=== PATIENT | female | born 1945 | race Caucasian/White ===

== ENCOUNTER 2022-12-28 10:35 | Observation (INO) ==
[2022-12-28 11:14] LABS: INR 1.05 (0.88-1.18)
[2022-12-28 11:19] LABS: ABS Eosinophils 0.1 10^3/uL (0.0-0.5); ABS Lymphocytes 1.1 10^3/uL (1.0-4.8); ABS Monocytes 0.4 10^3/uL (0.0-0.9); ABS Neutrophils 3.6 10^3/uL (1.5-7.6); Eosinophil % 2.1 %; Hematocrit 33.3 % (35-45); Hemoglobin 11.5 g/dL (11.5-14.3); Lymphocyte % 20.5 %; Mean Corpuscular Hemoglobin 32.5 pg (27-33); Mean Corpuscular Hgb Conc 34.4 g/dL (31-36); Mean Corpuscular Volume 94.5 fL (80-97); Mean Platelet Volume 9.1 fL (7.5-11.2); Platelet Count 277 10^3/uL (150-450); Red Blood Count 3.53 10^6/uL (3.63-4.92); Red Cell Distribution Width 14.6 % (12-17); White Blood Count 5.3 10^3/uL (3.8-11.8)
[2022-12-28 11:36] LABS: Albumin 4.2 g/dL (3.2-5.2); Albumin/Globulin Ratio 2.1 (1-3); Calcium 9.1 mg/dL (8.6-10.3); Creatinine, Serum 0.74 mg/dL (0.51-0.95); Potassium 3.9 mmol/L (3.5-5.0); Total Bilirubin 0.6 mg/dL (0.2-1.0); Total Protein 6.2 g/dL (6.4-8.9); eGFR CKD-EPI 84.3 (>60)
[2022-12-28 12:38] LABS: High Sensitivity Troponin 1 Hr 18 pg/mL (<15)
[2022-12-28] MEDS ORDERED: Iohexol 350 (CONTRAST) 500 ML MDV IV ONE (12:55)
[2022-12-28 15:20] LABS: High Sensitivity Troponin 3 Hr 26 pg/mL (<15)
[2022-12-28] MEDS ORDERED: Lisinopril/HCTZ 10/12.5 TA(NF) PO SCH (17:00)
[2022-12-28] MEDS: Enoxaparin 40 MG/0.4 ML SYR SUBCUT SCH (18:04)
[2022-12-28 18:30] LABS: HDL Cholesterol 67.3 mg/dL
[2022-12-28 20:26] LABS: High Sensitivity Troponin 3 Hr 22 pg/mL (<15)
[2022-12-29 08:14] LABS: ABS Basophils 0.1 10^3/uL (0.0-0.1); ABS Eosinophils 0.1 10^3/uL (0.0-0.5); ABS Lymphocytes 1.2 10^3/uL (1.0-4.8); ABS Monocytes 0.5 10^3/uL (0.0-0.9); ABS Neutrophils 3.9 10^3/uL (1.5-7.6); Eosinophil % 2.1 %; Hemoglobin 12.1 g/dL (11.5-14.3); Mean Corpuscular Hemoglobin 31.9 pg (27-33); Mean Corpuscular Hgb Conc 33.6 g/dL (31-36); Mean Corpuscular Volume 94.8 fL (80-97); Mean Platelet Volume 8.7 fL (7.5-11.2); Platelet Count 299 10^3/uL (150-450); Red Blood Count 3.79 10^6/uL (3.63-4.92); White Blood Count 5.9 10^3/uL (3.8-11.8)
[2022-12-29 08:24] LABS: Calcium 9.2 mg/dL (8.6-10.3); Creatinine, Serum 0.7 mg/dL (0.51-0.95); Potassium 4.2 mmol/L (3.5-5.0); eGFR CKD-EPI 90.1 (>60)
[2022-12-29] MEDS ORDERED: Aminophylline 25 MG/ML VIAL ONE ×2 (13:54→14:15)
[2022-12-29] MEDS ORDERED: Regadenoson 0.4 MG/5 ML SYRINGE ONE ×2 (13:54→14:15)
[2022-12-29] MEDS: Enoxaparin 40 MG/0.4 ML SYR SUBCUT SCH (17:46)
[2022-12-29 18:29] VITALS: BP 145/44
== END 2022-12-29 20:19 | disposition home or self-care (01) ==
LOC: ED 10:35 → EDHOLD 10:35 → SUATTDRO 16:07 → MEDTELE 18:24
PROVIDERS: ADMIT Internal Medicine; ATTEND Internal Medicine